=== PATIENT | female | born 1980 | race Caucasian/White ===

== ENCOUNTER 2019-08-18 05:42 | Observation (INO) | payer BC ==
[2019-08-16 08:54] LABS: BASOPHILS # (AUTO) 0.1 (0.0-0.1); BASOPHILS % 0.9 % (0.0-1.0); EOSINOPHILS # (AUTO) 0.2 (0.0-0.4); EOSINOPHILS % 2.5 % (0.0-6.0); HEMATOCRIT 40.4 % (34.2-44.1); HEMOGLOBIN 13.2 g/dL (12.0-16.0); LYMPHOCYTES # (AUTO) 2.1 (1.0-3.2); LYMPHOCYTES % 31.8 % (18.0-39.1); MEAN CORPUSCULAR HEMOGLOBIN 27.7 pg (28-32); MEAN CORPUSCULAR HGB CONC 32.7 g/dL (31-35); MEAN CORPUSCULAR VOLUME 84.9 fL (81-99); MONOCYTES # (AUTO) 0.4 (0.2-0.8); MONOCYTES % 6.3 % (4.4-11.3); NEUTROPHILS # (AUTO) 3.9 (2.1-6.9); NEUTROPHILS % 58.2 % (38.7-80.0); PLATELET COUNT 315 x10e3/uL (140-360); RED BLOOD COUNT 4.76 x10e6/uL (3.6-5.1); RED CELL DISTRIBUTION WIDTH 14.1 % (11.7-14.4)
[2019-08-16 09:12] LABS: ANION GAP 12.6 mmol/L (8-16); BLOOD UREA NITROGEN 8 mg/dL (7-26); BUN/CREATININE RATIO 10 (6-25); CALCIUM 9.4 mg/dL (8.4-10.2); CARBON DIOXIDE 26 mmol/L (22-29); CHLORIDE 106 mmol/L (98-107); CREATININE, SERUM 0.81 mg/dL (0.57-1.11); EST GLOMERULAR FILTRATION RATE > 60 ML/MIN (60-); GLUCOSE 100 mg/dL (74-118); POTASSIUM 4.6 mmol/L (3.5-5.1); SODIUM 140 mmol/L (136-145)
--- NOTE | 2019-08-16 09:14 | Diagnostic Imaging Report ---
EXAM: CHEST 2 VIEWS DATE: 08/16/2019 8:30 AM INDICATION: Preoperative evaluation COMPARISON: None FINDINGS: The trachea is midline. The lungs are symmetrically expanded without evidence for large focal consolidation, pneumothorax, or significant pleural effusion. The cardiomediastinal silhouette and pulmonary vasculature are within normal limits. No acute osseous abnormality is identified. The surrounding soft tissues are unremarkable. IMPRESSION: No acute cardiopulmonary process identified. Signed by: Dr. Shaheen Sandoval MD on 08/16/2019 9:11 AM
[2019-08-16 09:44] LABS: INR 0.89; PROTHROMBIN TIME 12.6 seconds (11.9-14.5)
[2019-08-16 09:45] LABS: PARTIAL THROMBOPLASTIN TIME 28.6 seconds (23.8-35.5)
[2019-08-18] VITALS (7 sets, daily range): BP systolic 114–126; BP diastolic 76–84
[~2019-08-18] VITALS: Ht 172.7 cm; Wt 88.1 kg
[~2019-08-18 05:42] MED LIST: PRENA1 CHEW TA1.4 MG PO
--- OUTSIDE RECORDS SUMMARY | 2019-08-18 05:44 | XMS REPORT ---
Author [facility] Address Unknown Phone Unavailable Care Team Providers Care Technical Designer Name Role Phone BUD GIBBS Unavailable Unavailable Payers Payer Name Policy Type Policy Number Effective Date Expiration Date Problems This patient has no known problems. Allergies, Adverse Reactions, Alerts Allergy Name Allergy Type Status Severity Reaction(s) Onset Date Inactive Date Treating Clinician Comments No Known Allergies DA Active U 2018-06-14 00:00:00 Medications This patient has no known medications. Results Test Description Test Time Test Comments Text Results Atomic Results Result Comments CHEST 2 VIEWS 2019-08-16 09:11:00 [facility] [address] [address] Patient Name: TAY LONDONO MR #: [id number] : 1980 Age/Sex: 38/F Req #: [id number] Adm Physician: Ordered by: BUD GIBBS MD Report #: [id number] Location: OR Room/Bed: Procedure: [id number] DX/CHEST 2 VIEWS Exam Date: 08/16/19 Exam Time: 0850 REPORT STATUS: Signed EXAM: CHEST 2 VIEWS DATE: 08/16/2019 8:30 AM INDICATION: Preoperative evaluation COMPARISON: None FINDINGS: The trachea is midline. The lungs are symmetrically expanded without evidence for large focal consolidation, pneumothorax, or significant pleural effusion. The cardiomediastinal silhouette and pulmonary vasculature are within normal limits. No acute osseous abnormality is identified. The surrounding soft tissues are unremarkable. IMPRESSION: No acute cardiopulmonary process identified. Signed by: Dr. Shaheen Johns MD on 08/16/2019 9:11 AM Dictated By: SHAHEEN JOHNS MD 0 Transcribed By: TAWANNA on 08/16/19910 COPY TO: BUD GIBBS MD
[2019-08-18] MEDS ORDERED: CEFAZOLIN SOD 1 GM/NS 50ML 100 ML IV ONE (06:31)
[2019-08-18] MEDS ORDERED: THROMBIN FOR SOLN 5,000 UNIT VIAL ONE (06:44)
[2019-08-18] MEDS ORDERED: LIDOCAINE 1% W/EPINEPHRINE 20 ML VIAL ONE (06:44)
[2019-08-18] MEDS ORDERED: BACITRACIN 50,000 UNIT VIAL ONE (06:45)
[2019-08-18] MEDS ORDERED: ACETAMINOPHEN 1000 MG/100 ML 100 ML IV ONE (07:39)
[2019-08-18] MEDS ORDERED: LIDOCAINE HCL (LTA) 4 ML SOLN ONE (07:40)
[2019-08-18] MEDS ORDERED: IBUPROFEN 800MG/ 200ML 200 ML IV ONE (07:40)
[2019-08-18] MEDS ORDERED: CARISOPRODOL 350 MG TAB PO PRN (08:45)
[2019-08-18] MEDS ORDERED: MORPHINE SULFATE 5 MG/ML VIAL IM PRN (08:45)
[2019-08-18] MEDS ORDERED: PROMETHAZINE HCL (IM) 25 MG/ML VIAL IM PRN (08:45)
[2019-08-18] MEDS ORDERED: ONDANSETRON HCL INJ 2MG/ML 2ML 2 MG/ML VIAL IV PRN (08:45)
[2019-08-18] MEDS ORDERED: HYDROMORPHONE 2MG/ML 2 MG/ML ML IV PRN (08:45)
[2019-08-18] MEDS ORDERED: ACETAMINOPHEN 325 MG TAB PO PRN (08:45)
[2019-08-18] MEDS ORDERED: MAGNESIUM/ALUMINUM/SIMETHICONE 30 ML UDC PO PRN (08:45)
[2019-08-18] MEDS ORDERED: MORPHINE SULFATE INJ 10 MG/ML ONE (08:54)
[2019-08-18] MEDS ORDERED: FENTANYL CITRATE/PF 100MCG/2 ML INJ ONE ×2 (09:07→15:46)
[2019-08-18] MEDS: LACTATED RINGER'S 1,000 ML IV SCH (11:14)
[2019-08-18] MEDS: OXYCODONE/ACETAMINOPHEN 5-325 1 EACH TABLET PO PRN ×3 (11:14→19:21)
[2019-08-18] MEDS: CEPACOL SORE THROAT LOZENGES PO PRN (11:14)
[2019-08-18] MEDS ORDERED: LIDOCAINE HCL 2% JELLY 5 ML TUBE ONE (11:54)
[2019-08-18] MEDS ORDERED: LIDOCAINE HCL 2% LOCAL INJ 5 ML SDV VIAL INJ ONE (11:54)
[2019-08-18] MEDS ORDERED: DEXAMETHASONE SOD PHOS INJ 4 MG/ML VIAL ONE (11:54)
[2019-08-18] MEDS ORDERED: PROPOFOL IV EMULSION 10 MG/ML 20 ML VIAL ONE (11:54)
[2019-08-18] MEDS ORDERED: ONDANSETRON HCL INJ 2MG/ML 2ML 2 MG/ML VIAL ONE (11:54)
[2019-08-18] MEDS ORDERED: SEVOFLURANE INHAL SOLN 250 ML PEN BTL ONE (11:54)
[2019-08-18] MEDS ORDERED: [UNRECOGNIZED DRUG - REMARK] PO SCH (12:00)
--- NOTE | 2019-08-18 14:07 | Operative Report ---
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 POSTOPERATIVE DIAGNOSIS: C6-7 disk herniation and spondylosis with radiculopathy, M50.123. PROCEDURES: 1. C6-7 anterior cervical diskectomy and microsurgical osteophyte resection and allograft fusion, 73162. 2. Preparation of MTF tricortical allograft, 01930. 3. C6-C7 anterior cervical plating with Synthes ZPM plate, 38500. ANESTHESIA: General. INDICATIONS: The patient is a 38-year-old woman, who presents with C6-7 disk herniation and spondylosis with left C7 radiculopathy. She was taken to surgery for anterior cervical decompression and fusion. PROCEDURE IN DETAIL: After induction of anesthesia, the patient was placed on the operating table in supine position. The right side of the neck was prepped and draped in sterile fashion. The fluoroscopic C-arm was positioned in cross-table lateral orientation. A small transverse incision was created on the right side of neck, superimposed on the C6-C7 disk space as determined by fluoroscopy. The platysma was divided in line with the incision. A subplatysmal dissection was carried out and avascular plane of dissection was developed medial to the sternocleidomastoid muscle, and was followed medial to the carotid sheath to the anterior border of cervical spine. The deep cervical fascia was opened. The esophagus was retracted to the left. The attachments of longus colli muscles to the anterolateral aspects of vertebral bodies of C6 and C7 was divided. The anterior longitudinal ligament was resected. [place] posts were inserted into C6 and C7. The [place] distractor was used to distract the disk space. The anterior annulus of the disk was incised with a #11 blade. The contents of the disks were thoroughly evacuated with curettes and pituitary rongeurs. The posterior osteophytes were meticulously drilled with a 2 mm cutting bur on a high-speed drill until they were completely removed. The posterior annulus of disk, herniated disk material, and the posterior longitudinal ligament were resected layer by layer until the dura was fully exposed and decompressed. The medial aspects of the uncinate process were resected on the left side to further expose any compressed origin of the left C7 nerve roots. After satisfactory decompression had been achieved, the endplates were prepared for fusion. The disk space was sized and found to be 8 mm in height. A piece of MTF corticocancellous allograft measuring 8 mm in thickness was selected and was loaded onto a Synthes ZPM plate. The construct was inserted into the C6-C7 disk space under distraction and fluoroscopic guidance. The distraction was released and distraction posts were removed. The plate was then screwed to the endplates of C6 and C7 with 2 pairs of 14 mm screws. All screws were locked. The wound was copiously irrigated with bacitracin solution. Meticulous hemostasis was secured. Retractor was removed. The platysma was closed with 3-0 Vicryl sutures. The skin was closed with 4-0 Monocryl sutures in subcuticular fashion. Steri-Strips and dressing were applied. The patient was awakened, extubated, and taken to postanesthesia care unit in stable condition. No intraoperative complications were encountered. ESTIMATED BLOOD LOSS: 10 mL. Juan Carlos Prasad MD PP/MODL /[id number]
[2019-08-18] MEDS: CEFAZOLIN SOD 1 GM/NS 50ML 50 ML IV SCH ×2 (14:23→22:00)
[2019-08-18] MEDS ORDERED: MIDAZOLAM HCL 2 MG/2 ML VIAL ONE (15:46)
--- NOTE | 2019-08-18 19:10 | NUR ---
Received patient in bed with eyes open. Resp even and unlabored. AAOx4. Soft collar to neck in place. IV RT FA 20g infusing LR @100ml/hr. Site without redness or swelling. Bed in locked and low position. Call light in reach.
[2019-08-18] MEDS ORDERED: ZOLPIDEM TARTRATE 5 MG TAB PO PRN (21:00)
[2019-08-19] VITALS: BP 109/73
[2019-08-19 04:00] VITALS: BP 126/89
[2019-08-19] MEDS: OXYCODONE/ACETAMINOPHEN 5-325 1 EACH TABLET PO PRN (06:20)
[2019-08-19] MEDS: CEPACOL SORE THROAT LOZENGES PO PRN (06:27)
[2019-08-19] MEDS: CEFAZOLIN SOD 1 GM/NS 50ML 50 ML IV SCH (06:27)
[2019-08-19 07:52] VITALS: BP 126/89
[2019-08-19 08:00] VITALS: BP 108/75
[2019-08-19 08:12] VITALS: BP 126/89
--- NOTE | 2019-08-19 09:14 | Diagnostic Imaging Report ---
EXAMINATION: C-SPINE 2 VIEWS AP LATERAL INDICATION: Postoperative COMPARISON: None FINDINGS: AP and lateral radiographs of the cervical spine demonstrate postoperative findings of anterior cervical discectomy and fusion at C6-7. Mild straightening of the normal cervical lordosis. Alignment appears otherwise anatomic. No acute fracture or dislocation. The soft tissues appear unremarkable. Partially visualized lung apices are clear. IMPRESSION: Anatomic alignment status post anterior cervical discectomy and fusion at C6-7. Signed by: Delia Perdomo MD on 08/19/2019 9:11 AM
[2019-08-19] MEDS: LACTATED RINGER'S 1,000 ML IV SCH (09:15)
== END 2019-08-19 10:01 | disposition home or self-care (01) ==
LOC: OR 05:42 → PACU V 08:42 → MED/SURG 10:38
PROVIDERS: ADMIT Neurological Surgery; ATTEND Neurological Surgery
DX: M50.123 Cervical disc disorder at C6-C7 level with radiculopathy (principal); Z01.810 Encounter for preprocedural cardiovascular examination; Z01.812 Encounter for preprocedural laboratory examination; Z01.811 Encounter for preprocedural respiratory examination
CPT/HCPCS: 36415; 71046; 72040; 77003; 80048; 81025; 85025; 85610; 85730; 86850; 86900; 88304; 93005; C1713; C9359; G0378; J0690; J1100; J2001; J2250; J2270; J2405; J3010; J7121

== ENCOUNTER → 2019-09-15 | Outpatient (CLI) | payer BC ==
--- NOTE | 2019-09-15 09:37 | Diagnostic Imaging Report ---
EXAM: SPINE CERVICAL AP LAT FLEX EXT DATE: 09/15/2019 8:23 AM INDICATION: Cervical pain COMPARISON: 08/19/2019 FINDINGS: Again identified are postsurgical changes from prior anterior cervical fusion/discectomy at C6-C7. Hardware appears in stable position. Again noted is mild straightening of the normal cervical lordosis. Otherwise cervical alignment is unremarkable. There is no evidence for acute fracture or dislocation. Vertebral body heights are maintained. The dens as well as lateral masses appear unremarkable. The prevertebral soft tissues are within normal limits. The lung apices are clear. IMPRESSION: Stable post surgical changes from anterior cervical fusion at C6-C7. No acute radiographic abnormality identified within the cervical spine. Signed by: Dr. Shaheen Sandoval MD on 09/15/2019 9:34 AM
== END ==
LOC: RAD 08:17
PROVIDERS: ATTEND Neurological Surgery
DX: M50.20 Other cervical disc displacement, unspecified cervical region (principal); M43.22 Fusion of spine, cervical region
CPT/HCPCS: 72050

== ENCOUNTER → 2020-02-22 | Outpatient (CLI) | payer BC ==
--- NOTE | 2020-02-22 08:44 | Diagnostic Imaging Report ---
Exam: Cervical spine AP lateral flexion extension History: Cervical disc herniation Comparison: September 15, 2019 Findings: No fracture. Normal alignment. Mild degenerative disc at C5-C6. Anterior cervical discectomy and fusion of C6-C7 with low profile interbody cage. Hardware is intact. Impression: Stable anterior cervical discectomy and fusion of C6-C7 Signed by: Dr. Kristopher Henderson M.D. on 02/22/2020 8:41 AM
== END ==
LOC: RAD 07:30
PROVIDERS: ATTEND Neurological Surgery
DX: M50.20 Other cervical disc displacement, unspecified cervical region (principal); M43.22 Fusion of spine, cervical region
CPT/HCPCS: 72050